=== PATIENT | male | born 1930 ===

== ENCOUNTER 2016-05-05 09:07 | Emergency (ER) | payer MEDICARE, MEDICAID ==
[2016-05-05 09:08] VITALS: BMI 22.6
[2016-05-05] MEDS ORDERED: NS 1,000 ML IV ONE ×2 (09:16→09:48)
[2016-05-05 09:22] VITALS: TEMP 101
[2016-05-05] MEDS ORDERED: ACETAMINOPHEN 325 MG SUPP PR ONE (09:23)
[2016-05-05] MEDS ORDERED: ACETAMINOPHEN 650 MG SUPP PR ONE (09:23)
[2016-05-05] MEDS ORDERED: SODIUM CHLORIDE 0.9% 3 ML FLUSH FLUSH PRN (09:50)
[2016-05-05 10:02] LABS: MPV 10.3 fL (7.4-10.4)
[2016-05-05 10:07] LABS: ALLEN'S TEST PASS; BEb 0.5 (+/- 2); TCO2 25.7 MMOL/L (23-27)
[2016-05-05 10:08] LABS: ABG Draw Site Right Radial
[2016-05-05 10:14] LABS: PARTIAL THROMB. TIME 27.4 SEC (22-35); PT-INR 1.2
[2016-05-05 10:15] LABS: BLOOD UREA NITROGEN 41 MG/DL (9-20); CALC CORRECTED 9.1 MG/DL (8.4-10.2); CALCIUM 7.5 MG/DL (8.4-10.2); CALCULATED OSMOLALITY 301 MOs/Kg (270-290); CHLORIDE 111 mEq/L (98-107); GLUCOSE 219 MG/DL (70-99); SODIUM LEVEL 148 mEq/L (137-146); TOTAL PROTEIN 5.9 G/DL (6.3-8.2)
[2016-05-05 10:25] LABS: SEG NEUTROPHIL 82 % (45-76)
[2016-05-05] MEDS ORDERED: MORPHINE 4 MG/ML INJECTION IV ONE (10:49)
[2016-05-05] MEDS ORDERED: MORPHINE 4 MG/ML INJECTION ONE (11:01)
--- NOTE | 2016-05-05 11:02 | EDPRACDOC ---
- General Information Chief Complaint: Generalized Weakness Stated Complaint: NECROSIS OF THE TOES Time Seen by Provider: 05/05/16 09:14 Information Source: Family, Longterm, [facility] [employer] Home Medications: Home Medications Acetaminophen [Tylenol] 650 mg PO Q6H PRN 04/01/16 Aspirin [Chewable Aspirin] 81 mg PO DAILY 04/01/16 CITALOPRAM (anti-depressant) [Celexa] 10 mg PO DAILY 04/01/16 Cyanocobalamin/FA/Pyridoxine [Foltabs 800 Tablet (115mcg/0.8mg/10mg)] 1 tab PO DAILY 04/01/16 Donepezil HCl [Aricept] 10 mg PO HS 04/01/16 Doxycycline Hyclate 100 mg PO BID #28 capsule 04/01/16 Ergocalciferol (Vitamin D2) [Vitamin D] 50,000 units PO Fr@0900 04/01/16 Ferrous Sulfate [Feosol] 325 mg PO DAILY 04/01/16 Fexofenadine HCl [Felicia] 60 mg PO DAILY 04/01/16 Guaifenesin [Humabid, Mucinex] 600 mg PO Q12H PRN 04/01/16 House 2.0 60 ml PO TID 04/01/16 House Supplement 1 each PO HS 04/01/16 Hypromellose [Artificial Tears] 1 drop OU Q2H 04/01/16 Lisinopril [Prinivil] 10 mg PO DAILY 04/01/16 Loratadine [Claritin] 10 mg PO Q48H 04/01/16 Polyethylene Glycol 3350 [Miralax] 17 gm PO Q48H 04/01/16 Sennosides/Docusate Sodium [Sennosides-Docusate Sodium Tab] 2 each PO BID Tamsulosin HCl [Flomax] 0.4 mg PO HS 04/01/16 Vit C/E/Zinc/Lutein/Zeaxanthin [Ocuvite Eye [facility]] 1 each PO BID Allergies/Adverse Reactions: Allergies Allergy/AdvReac Type Severity Reaction Status Date / Time No Known Allergies Allergy Verified 05/05/16 09:15 - History of Present Illness Onset: chronic Exact Onset of Symptoms: Unknown HPI: PT HAS KNOWN NECROTIC PLACES ON HIS FEET. HE HAS BEEN UNABLE TO TOLERATE SURGERY. PT HAS BEEN GETTING INCREASINGLY WEAK AND TODAY WAS UNABLE TO SIT UP IN A WHEELCHAIR. THE PT HAS BEEN GETTING IV PCN G AND CLINDAMYCIN THROUGH HIS PICC LINE. PT IS UNABLE TO GIVE ANY HX. - Treatment Prior to ED Arrival Reported Medications/Treatment [facility] Treatment BLS ED Past Medical History - Patient Medical History Neurological History: Reports: Cerebrovascular Accident, Dementia Cardiac History: Reports: Hypertension Psychological History: Reports: Depression Systemic History: Reports: Diabetes Surgical History: Reports: Other (PT UNABLE TO SAY) - Social Medical History Smoking Status: Never smoker [facility] In: [facility] EDM Review of Systems - Review of Systems ROS Negative Except as Marked: Yes All systems reviewed and were negative except as marked - Physical Exam Constitutional: Distress, Decreased Consciousness Oriented to: Not Oriented Last recorded Vital Signs: Last Vital Signs Temp 101 F H 05/05/16 09:15 Pulse 95 05/05/16 09:48 Resp 18 05/05/16 09:48 BP 83/47 L 05/05/16 09:48 Pulse Ox 94 05/05/16 09:48 Oxygen Pulse Oxygen Saturation 94 O2 Device Room Air Oxygen Flow Rate Fraction of Inspired Oxygen ( FIO2) - HEENT Head: Normal ( normocephalic) Eye Exam: Normal (PERRL, EOMI, Sclera white) Oropharynx: Membranes Dry ENT EAC: Normal TMJ: Normal Nose: No Symptoms Reported (septum midline) Neck: Normal (FROM, trachea at midline) - Respiratory/Cardiovascular Respiratory: Rhonchi Cardiovascular: Normal - GI Auscultation: Normal (NABS) Palpation: Normal (Soft,No rebound or guarding, non distended) Tenderness: Non tender De Souza's Sign: Negative Rectal Exam: Heme positive stool Stool: Brown - Musculoskeletal Back: Normal Extremities: Other (RIGHT AND LEFT FOOT: MULTIPLE NECROTIC AREAS WITH CELLULITIS. FOUL ODOR.) - Integumentary Skin: Dry Lymphatics: Normal - Neurologic Memory Impaired: Unable to Test Motor Function: Unable to Test Cranial Nerve: Unable to Test - Results 05/05/16 09:45 05/05/16 09:45 WBC 7.2 xk/uL (3.8-10.8) 05/05/16 09:45 RBC 2.34 xM/uL (4.70-6.10) L 05/05/16 09:45 Hgb 7.4 g/dL (14.0-18.0) L 05/05/16 09:45 Hct 22.1 % (42-52) L 05/05/16 09:45 MCV 94 fL (80-94) 05/05/16 09:45 MCH 31.5 pg (27-32) 05/05/16 09:45 MCHC 33.4 g/dl (33-36) 05/05/16 09:45 RDW 13.6 % (11.5-14.5) 05/05/16 09:45 Plt Count 149 xk/uL (130-400) 05/05/16 09:45 MPV 10.3 fL (7.4-10.4) 05/05/16 09:45 Neut % (Auto) Cancelled 05/05/16 09:45 Lymph % (Auto) Cancelled 05/05/16 09:45 [place] % (Auto) Cancelled 05/05/16 09:45 Eos % (Auto) Cancelled 05/05/16 09:45 Baso % (Auto) Cancelled 05/05/16 09:45 Absolute Neuts (auto) Cancelled 05/05/16 09:45 Absolute Lymphs (auto) Cancelled 05/05/16 09:45 Seg Neuts % (Manual) 82 % (45-76) H 05/05/16 09:45 Band Neutrophils % 5 % (0-5) 05/05/16 09:45 Lymphocytes % (Manual) 7 % (17-44) L 05/05/16 09:45 Monocytes % (Manual) 5 % (0-10) 05/05/16 09:45 Basophils % (Manual) 1 % (0-2) 05/05/16 09:45 Absolute Neutrophils 6.26 xk/uL (1.7-8.2) 05/05/16 09:45 Absolute Lymphocytes 0.50 xk/uL (0.65-4.75) L 05/05/16 09:45 Platelet Estimate Norm (NORMAL) 05/05/16 09:45 RBC Morphology Norm 05/05/16 09:45 PT 12.0 SEC (9.2-11.2) H 05/05/16 09:45 INR 1.2 05/05/16 09:45 APTT 27.4 SEC (22-35) 05/05/16 09:45 Puncture Site Right radial 05/05/16 10:02 pH 7.430 pH UNITS (7.35-7.45) 05/05/16 10:02 pCO2 37.0 mmHg (35-45) 05/05/16 10:02 pO2 64.0 mmHg (80-100) L 05/05/16 10:02 HCO3 24.6 MMOL/L (22-26) 05/05/16 10:02 Total CO2 25.7 MMOL/L (23-27) 05/05/16 10:02 Base Excess 0.5 (+/- 2) 05/05/16 10:02 FiO2 % 21% 05/05/16 10:02 Specimen Drawn By Roude 05/05/16 10:02 Sodium 148 mEq/L (137-146) H 05/05/16 09:45 Potassium 4.0 mEq/L (3.5-5.1) 05/05/16 09:45 Chloride 111 mEq/L (98-107) H 05/05/16 09:45 Carbon Dioxide 25 mMOL/L (22-33) 05/05/16 09:45 Anion Gap 16 mEq/L (8-16) 05/05/16 09:45 BUN 41 MG/DL (9-20) H 05/05/16 09:45 Creatinine 3.40 MG/DL (0.66-1.25) H 05/05/16 09:45 Estimated GFR (MDRD) TNP 05/05/16 09:45 Glucose 219 MG/DL (70-99) H 05/05/16 09:45 Calculated Osmolality 301 MOs/Kg (270-290) H 05/05/16 09:45 Lactic Acid 1.0 mEq/L (0.7-2.1) 05/05/16 09:45 Calcium 7.5 MG/DL (8.4-10.2) L 05/05/16 09:45 Corrected Calcium 9.1 MG/DL (8.4-10.2) 05/05/16 09:45 Total Bilirubin 0.3 MG/DL (0.2-1.3) 05/05/16 09:45 AST 65 IU/L (17-59) H 05/05/16 09:45 ALT 39 IU/L (21-72) 05/05/16 09:45 Alkaline Phosphatase 59 IU/L (50-160) 05/05/16 09:45 Troponin I 0.14 ng/mL (<.04) 05/05/16 09:45 Total Protein 5.9 G/DL (6.3-8.2) L 05/05/16 09:45 Albumin 2.4 G/DL (3.5-5.0) L 05/05/16 09:45 Lab Results 05/05/16 05/05/16 05/05/16 10:02 09:45 09:45 WBC RBC Hgb Hct MCV MCH MCHC RDW Plt Count MPV Neut % (Auto) Lymph % (Auto) [place] % (Auto) Eos % (Auto) Baso % (Auto) Absolute Neuts (auto) Absolute Lymphs (auto) Seg Neuts % (Manual) Band Neutrophils % Lymphocytes % (Manual) Monocytes % (Manual) Basophils % (Manual) Absolute Neutrophils Absolute Lymphocytes Platelet Estimate RBC Morphology PT 12.0 H INR 1.2 APTT 27.4 Puncture Site Right radial pH 7.430 pCO2 37.0 pO2 64.0 L HCO3 24.6 Total CO2 25.7 Base Excess 0.5 FiO2 % 21% Specimen Drawn By Roude Sodium Potassium Chloride Carbon Dioxide Anion Gap BUN Creatinine Estimated GFR (MDRD) Glucose Calculated Osmolality Lactic Acid 1.0 Calcium Corrected Calcium Total Bilirubin AST ALT Alkaline Phosphatase Troponin I Total Protein Albumin 05/05/16 05/05/16 09:45 09:45 WBC 7.2 RBC 2.34 L Hgb 7.4 L Hct 22.1 L MCV 94 MCH 31.5 MCHC 33.4 RDW 13.6 Plt Count 149 MPV 10.3 Neut % (Auto) Cancelled Lymph % (Auto) Cancelled [place] % (Auto) Cancelled Eos % (Auto) Cancelled Baso % (Auto) Cancelled Absolute Neuts (auto) Cancelled Absolute Lymphs (auto) Cancelled Seg Neuts % (Manual) 82 H Band Neutrophils % 5 Lymphocytes % (Manual) 7 L Monocytes % (Manual) 5 Basophils % (Manual) 1 Absolute Neutrophils 6.26 Absolute Lymphocytes 0.50 L Platelet Estimate Norm RBC Morphology Norm PT INR APTT Puncture Site pH pCO2 pO2 HCO3 Total CO2 Base Excess FiO2 % Specimen Drawn By Sodium 148 H Potassium 4.0 Chloride 111 H Carbon Dioxide 25 Anion Gap 16 BUN 41 H Creatinine 3.40 H Estimated GFR (MDRD) TNP Glucose 219 H Calculated Osmolality 301 H Lactic Acid Calcium 7.5 L Corrected Calcium 9.1 Total Bilirubin 0.3 AST 65 H ALT 39 Alkaline Phosphatase 59 Troponin I 0.14 Total Protein 5.9 L Albumin 2.4 L - EKG EKG #1 EKG Time: 10:02 -: Yes EKG interpreted by me Rate: bpm: 92 [place]: Normal Rhythm: NSR, PVCs Block: None Hypertrophy: None ST: Normal Comparison: 10/22/10 - Additional Information Additional Information: I SPOKE WITH PT'S DAUGHTER REGARDING PT'S OUTLOOK. PT IS SEPTIC WITH A GI BLEED AND ARF. HE IS TOO SICK FOR SURGERY, BUT NEEDS AN AMPUTATION TO IMPROVE. DAUGHTER SAID HER DAD IS READY TO GO. SHE WANTS HIM TO BE COMFORTABLE. SHE REQUESTS HOSPICE. PT D/W THE HOSPICE NURSE WHO SAW PT. PT IS ACCEPTED AT HOSPICE HOUSE. ED Critical Care Note - Critical Care Note Total Time (mins): 30 Decision Time to Discharge: 12:39 - Departure Yes I personally saw and evaluated the patient. Disposition: Disc to Hospice Care Condition: Critical Final Diagnosis: Fever, Sepsis, Acute on chronic renal failure, BILATERAL LOWER EXTREMITY GANGRENE, Acute post-hemorrhagic anemia, Upper GI bleed, Hypoxia, Poorly controlled diabetes mellitus, WOOD ZONE TROPONIN Instructions: Renal Failure Diet (GEN), Weakness (General) Education/Counseling Given To: Patient, Family Member Education/Counseling Given Regarding: Diagnosis, Treatment Referrals: David Salazar MD [Primary Care Provider] - One Week
[2016-05-05 13:04] VITALS: BP 115/51; PULSE 77
--- NOTE | 2016-05-05 14:20 | DIRPT ---
CLINICAL DATA: Weakness and decreased level of consciousness. EXAM: PORTABLE CHEST 1 VIEW COMPARISON: 10/22/2010 FINDINGS: The heart size and mediastinal contours are within normal limits. Stable elevation of the right hemidiaphragm. There is no evidence of pulmonary edema, consolidation, pneumothorax, nodule or pleural fluid. The visualized skeletal structures are unremarkable. IMPRESSION: No active disease. Electronically Signed By: Bill Ferrari M.D. On: 05/05/2016 14:17
[2016-05-05] MEDS ORDERED: SODIUM CHLORIDE 0.9% 3 ML FLUSH FLUSH SCH (18:00)
== END 2016-05-05 14:25 | disposition hospice, inpatient (51) ==
LOC: ED 09:07
DX: A41.9 Sepsis, unspecified organism (principal); I96 Gangrene, not elsewhere classified; N17.9 Acute kidney failure, unspecified; N18.9 Chronic kidney disease, unspecified; D62 Acute posthemorrhagic anemia; K92.2 Gastrointestinal hemorrhage, unspecified; E11.9 Type 2 diabetes mellitus without complications; R74.8 Abnormal levels of other serum enzymes
CPT/HCPCS: 36415; 36600; 71010; 80053; 82270; 82803; 83605; 84484; 85007; 85027; 85610; 85730; 87040; 93005; 96361; 96374; 99285; A9270; J2270; J3490